=== PATIENT | female | born 1965 | race Hispanic/Latino ===

== ENCOUNTER 2017-08-15 14:39 | Emergency (ER) | payer OTHER ==
[~2017-08-15] VITALS: Ht 152.4 cm; Wt 68.0 kg
[~2017-08-15 14:39] MED LIST: B-12 PO; CALCIUM PO; COLACE100 MG PO; D3 PO; ECOTRIN81 MG PO; JANUMET PO; MOTRIN800 MG PO; MULTIVITAMIN PO; NORCO 5-325 TA1 EACH PO; OMEGA 3 1,0001 EACH PO; PRAVASTATIN SOD20 MG PO; VITAMIN C PO; Z.0.CLINDAMYCIN HC30; Z.0.JANUMET 50-1,01; Z.0.PRAVACHOL40 MG; Z.0.PRILOSEC20 MG; [UNRECOGNIZED DRUG - OTHER]
[2017-08-15 22:08] LABS: BASOPHILS % 0.3 % (0.0-1.0); EOSINOPHILS # (AUTO) 0.1 (0.0-0.4); EOSINOPHILS % 1.5 % (0.0-6.0); HEMOGLOBIN 14.5 g/dL (12.0-16.0); LYMPHOCYTES # (AUTO) 2.7 (1.0-3.2); LYMPHOCYTES % 35.4 % (18.0-39.1); MEAN CORPUSCULAR HEMOGLOBIN 28.8 pg (28-32); MEAN CORPUSCULAR HGB CONC 33.7 g/dL (31-35); MEAN CORPUSCULAR VOLUME 85.5 fL (81-99); MONOCYTES # (AUTO) 0.5 (0.2-0.8); MONOCYTES % 6.4 % (4.4-11.3); NEUTROPHILS # (AUTO) 4.2 (2.1-6.9); NEUTROPHILS % 56.1 % (38.7-80.0); PLATELET COUNT 268 x10e3/uL (140-360); RED BLOOD COUNT 5.03 x10e6/uL (3.6-5.1); RED CELL DISTRIBUTION WIDTH 13.2 % (11.7-14.4)
[2017-08-15 22:27] LABS: ALANINE AMINOTRANSFERASE 24 IU/L (0-55); ALBUMIN 4.7 g/dL (3.5-5.0); ALBUMIN/GLOBULIN RATIO 1.5 (0.8-2.0); ALKALINE PHOSPHATASE 35 IU/L (40-150); AMYLASE 110 U/L (25-125); ANION GAP 15.6 mmol/L (8-16); BLOOD UREA NITROGEN 21 mg/dL (7-26); BUN/CREATININE RATIO 24 (6-25); CALCIUM 10.4 mg/dL (8.4-10.2); CARBON DIOXIDE 26 mmol/L (22-29); CHLORIDE 100 mmol/L (98-107); CREATININE, SERUM 0.88 mg/dL (0.57-1.11); EST GLOMERULAR FILTRATION RATE > 60 ML/MIN (60-); GLUCOSE 174 mg/dL (74-118); LIPASE 84 U/L (8-78); POTASSIUM 3.6 mmol/L (3.5-5.1); SODIUM 138 mmol/L (136-145)
[2017-08-15 23:10] LABS: BILIRUBIN,URINE NEGATIVE (NEGATIVE); KETONES,URINE NEGATIVE (NEGATIVE); LEUKOCYTE ESTERASE ,URINE NEGATIVE (NEGATIVE); PROTEIN,URINE DIPSTICK NEGATIVE (NEGATIVE); URINE UROBILINOGEN 0.2 mg/dL (0.2 - 1)
[2017-08-15 23:11] LABS: CLARITY,URINE SL CLOUDY (CLEAR); COLOR,URINE YELLOW (YELLOW); NITRITE,URINE POSITIVE (NEGATIVE)
[2017-08-15 23:22] LABS: BACTERIA,URINE MANY /HPF; EPITHELIAL CELLS,URINE RARE /LPF; RBC,URINE 0-5 /HPF (0-5)
== END 2017-08-15 23:40 | disposition home or self-care (01) ==
LOC: ER 14:39
DX: R10.13 Epigastric pain (principal); R11.2 Nausea with vomiting, unspecified; N30.90 Cystitis, unspecified without hematuria
CPT/HCPCS: 36415; 80053; 81001; 82150; 83690; 85025; 87086; 87186; 99283

== ENCOUNTER 2018-10-22 10:10 | Emergency (ER) | payer OTHER ==
[~2018-10-22] VITALS: Ht 152.4 cm; Wt 64.9 kg
--- OUTSIDE RECORDS SUMMARY | 2018-10-22 10:13 | XMS REPORT ---
Author Author [facility] Address Unknown Phone Unavailable Care Team Providers Care Brim Presser Name Role Phone Unavailable Unavailable Problems This patient has no known problems. Allergies, Adverse Reactions, Alerts This patient has no known allergies or adverse reactions. Medications This patient has no known medications. Results Test Description Test Time Test Comments Text Results Atomic Results Result Comments SCR MAMM BILATERAL NENITA CAD DIGITAL 2018-07-30 10:02:56 - SCR MAMM BILATERAL NENITA CAD DIGITALBILATERAL DIGITAL SCREENING MAMMOGRAM 3D/2D WITH CAD: 07/25/2018CLINICAL: Asymptomatic. Digital breast tomosynthesis was performed in addition to routine CC and MLO views. Current mammographic images were evaluated by either a [employer] M-Vu or a [employer] ImageChecker CAD (computer aided detection system). Comparison is made to exams dated 06/17/2017 mammogram, mammogram, and 06/01/2015 mammogram - [facility]. The tissue of both breasts is heterogeneously dense. This may lower the sensitivity of mammography. No new suspicious mass, architectural distortion, malignant type calcification, or lymph node abnormality detected. Breast architecture is stable compared to prior exams.IMPRESSION: NEGATIVEThere is no mammographic evidence of malignancy. Resume annual screening mammography in one year. Natalie Wills M.D. ar/:07/30/2018 10:02:56 Attending Technologist: Blanca MENENDEZ, [facility] Technologist: Conchita MENENDEZ, [facility]letter sent: BIRADS 1-2 Normal Mammogram BI-RADS: 1 Negative
--- OUTSIDE RECORDS SUMMARY | 2018-10-22 10:13 | XMS REPORT | Clinical Summary ---
Author Author [facility] Address Unknown Phone Unavailable Care Team Providers Care News Clerk Name Role Phone Delvin Marin MD PCP Allergies No Known Allergies Medications End Date Status Medication Sig Dispensed Refills Start Date Active pravastatin (PRAVACHOL) Take 20 mg by 0 20 MG tablet mouth nightly. Active canagliflozin (INVOKANA) Take 300 mg 0 100 mg tablet tablet by mouth daily. Active sAXagliptin-metformin Take by mouth 0 5-1,000 mg tablet, ER 2 (two) times multiphase 24 hr a day. Active gemfibrozil (LOPID) 600 Take 600 mg 0 MG tablet by mouth 2 (two) times a day before meals. Active aspirin (ECOTRIN) 81 MG Take 162 mg 0 enteric coated tablet by mouth as needed for mild pain. Active Problems No known active problems Encounters Care Team Description Date Type Specialty Rafael Reyes MD 05/26/2018 Anesthesia General Surgery Event Mario Marin MD EXCISION, 5 SCALP MASSES AND INTERMEDIATE CLOSURE 05/26/2018 Surgery General Surgery Mario Marin MD 05/26/2018 Hospital General Surgery Encounter Mario Marin MD Preop testing (Primary Dx) 05/23/2018 Pre-Admit Pre-Admission Testing Testing Appointment Todd Franco MD 11/12/2017 Refill Internal Medicine after 10/21/2017 Family History Medical History Relation Name Comments Diabetes Father Hypertension Father Leukemia Mother Relation Name Status Comments Father Mother Social History Date Tobacco Use Types Packs/Day Years Used Former Smoker Cigarettes Smokeless Tobacco: Never Used Comments: pack per month Alcohol Use Drinks/Week oz/Week Comments Yes social Sex Assigned at Date Recorded Not on file Industry Job Start Date Occupation Not on file Not on file Not on file Travel End Travel History Travel Start No recent travel history available. Last Filed Vital Signs Time Taken Vital Sign Reading 05/26/2018 10:15 AM CDT Blood Pressure 121/76 05/26/2018 10:15 AM CDT Pulse 74 05/26/2018 7:31 AM CDT Temperature 36.6 C (97.8 F) 05/26/2018 10:15 AM CDT Respiratory Rate 16 05/26/2018 10:15 AM CDT Oxygen Saturation 99% - Inhaled Oxygen - Concentration 05/26/2018 7:12 AM CDT Weight 67.3 kg (148 lb 4.8 oz) 05/26/2018 7:12 AM CDT Height 152.4 cm (5') 05/26/2018 7:12 AM CDT Body Mass Index 28.96 Plan of Treatment Health Maintenance Due Date Last Done Comments CERVICAL CANCER SCREENING 1987 BREAST CANCER SCREENING 2016 COLON CANCER SCREENING 2016 SHINGLES VACCINES (#1) 2016 INFLUENZA VACCINE 03/05/2018 Procedures Comments Procedure Name Priority Date/Time Associated Diagnosis SURGICAL PATHOLOGY Routine 05/26/2018 REQUEST 9:22 AM CDT EXCISION, MASS 05/26/2018 SCALP MASSES 8:45 AM CDT R22.9 POC GLUCOSE Routine 05/26/2018 7:27 AM CDT ECG 12-LEAD Routine 05/23/2018 Preop testing 3:45 PM CDT ESTIMATED GFR Routine 05/23/2018 3:17 PM CDT BASIC METABOLIC PANEL Routine 05/23/2018 Preop testing 3:17 PM CDT HC COMPLETE BLD COUNT Routine 05/23/2018 Preop testing W/AUTO DIFF 3:17 PM CDT after 10/21/2017 Results * Surgical pathology request (05/26/2018 9:22 AM CDT) [facility] DEPARTMENT OF PATHOLOGY AND GENOMIC MEDICINE Surgical pathology report See link below for PDF Lab [facility] DEPARTMENT OF Report PATHOLOGY AND GENOMIC MEDICINE Result status This is Final Report for [facility] DEPARTMENT OF [id number] PATHOLOGY AND GENOMIC MEDICINE Performing Organization Address [facility] Phone Number [address] [place] [address] PATHOLOGY AND GENOMIC MEDICINE * POC glucose (05/26/2018 7:27 AM CDT) POC glucose 136 (H) 65 - 99 mg/dL [facility] DEPARTMENT OF Comment: PATHOLOGY AND Meter ID: [id number] GENOMIC MEDICINE Rvda Master Certified Rv Technician: León Patel Performing Organization Address [facility] Phone Number [address] [place] [phone] PATHOLOGY AND GENOMIC MEDICINE * ECG 12 lead (05/23/2018 3:45 PM CDT) Ventricular rate 75 [facility] Atrial rate 75 [facility] [place] interval 144 [facility] QRSD interval 82 [facility] QT interval 416 [facility] QTC interval 464 [facility] P axis 1 17 [facility] QRS axis 1 -71 [facility] T wave axis 41 [facility] EKG impression Normal sinus rhythm-Left axis [facility] MUSE deviation-Low voltage QRS-Possible Anterolateral infarct , age undetermined-Abnormal ECG-No previous ECGs available- Performing Organization Address [facility] Phone Number [facility] [address] [place] [address] * Estimated GFR (05/23/2018 3:17 PM CDT) Estimated GFR >=90 mL/min/1.73 m2 [facility] DEPARTMENT OF Comment: PATHOLOGY AND CatergoryUnitsInte GENOMIC MEDICINE rpretation G1 >=90 Normal or high G2 60-89Mildly decreased W3y25-13 Mildly to moderately decreased B6l56-62 Moderately to severely decreased G4 15-29Severely decreased G5 <15Kidney failure The eGFR was calculated using the Chronic Kidney Disease Epidemiology Collaboration (CKD-EPI) equation. Interpretation is based on recommendations of the National Kidney Foundation-Kidney Disease Outcomes Quality Initiative (NKF-KDOQI) published in 2014. Specimen Plasma specimen Performing Organization Address [facility] Phone Number [address] [place] [address] PATHOLOGY AND GENOMIC MEDICINE * CBC with platelet and differential (05/23/2018 3:17 PM CDT) WBC 6.86 4.50 - 11.00 k/uL [facility] DEPARTMENT OF PATHOLOGY AND GENOMIC MEDICINE RBC 4.80 4.20 - 5.50 m/uL [facility] DEPARTMENT OF PATHOLOGY AND GENOMIC MEDICINE HGB 13.6 12.0 - 16.0 g/dL [facility] DEPARTMENT OF PATHOLOGY AND GENOMIC MEDICINE HCT 41.7 37.0 - 47.0 % [facility] DEPARTMENT OF PATHOLOGY AND GENOMIC MEDICINE MCV 86.9 82.0 - 100.0 fL [facility] DEPARTMENT OF PATHOLOGY AND GENOMIC MEDICINE MCH 28.3 27.0 - 34.0 pg [facility] DEPARTMENT OF PATHOLOGY AND GENOMIC MEDICINE MCHC 32.6 31.0 - 37.0 g/dL [facility] DEPARTMENT OF PATHOLOGY AND GENOMIC MEDICINE RDW - SD 41.9 37.0 - 55.0 fL [facility] DEPARTMENT OF PATHOLOGY AND GENOMIC MEDICINE MPV 11.1 8.8 - 13.2 fL [facility] DEPARTMENT OF PATHOLOGY AND GENOMIC MEDICINE Platelet count 261 150 - 400 k/uL [facility] DEPARTMENT OF PATHOLOGY AND GENOMIC MEDICINE Nucleated RBC 0.00 /100 WBC [facility] DEPARTMENT OF PATHOLOGY AND GENOMIC MEDICINE Neutrophils 53.1 39.0 - 69.0 % [facility] DEPARTMENT OF PATHOLOGY AND GENOMIC MEDICINE Lymphocytes 36.6 25.0 - 45.0 % [facility] DEPARTMENT OF PATHOLOGY AND GENOMIC MEDICINE Monocytes 8.0 0.0 - 10.0 % [facility] DEPARTMENT OF PATHOLOGY AND GENOMIC MEDICINE Eosinophils 1.3 0.0 - 5.0 % [facility] DEPARTMENT OF PATHOLOGY AND GENOMIC MEDICINE Basophils 0.6 0.0 - 1.0 % [facility] DEPARTMENT OF PATHOLOGY AND GENOMIC MEDICINE Specimen Blood Performing Organization Address City/State/Zipcode Phone Number [facility] [address] [place] [address] PATHOLOGY AND GENOMIC MEDICINE * Basic metabolic panel (05/23/2018 3:17 PM CDT) Sodium 140 135 - 148 mEq/L [facility] DEPARTMENT OF PATHOLOGY AND GENOMIC MEDICINE Potassium 4.4 3.5 - 5.0 mEq/L [facility] DEPARTMENT OF PATHOLOGY AND GENOMIC MEDICINE Chloride 100 98 - 112 mEq/L [facility] DEPARTMENT OF PATHOLOGY AND GENOMIC MEDICINE CO2 27 24 - 31 mEq/L [facility] DEPARTMENT OF PATHOLOGY AND GENOMIC MEDICINE Anion gap 13@ANIO 7 - 15 mEq/L [facility] DEPARTMENT OF PATHOLOGY AND GENOMIC MEDICINE BUN 16 6 - 20 mg/dL [facility] DEPARTMENT OF PATHOLOGY AND GENOMIC MEDICINE Creatinine 0.70 0.50 - 0.90 mg/dL [facility] DEPARTMENT OF PATHOLOGY AND GENOMIC MEDICINE Glucose 123 (H) 65 - 99 mg/dL [facility] DEPARTMENT OF PATHOLOGY AND GENOMIC MEDICINE Calcium 10.2 8.3 - 10.2 mg/dL [facility] DEPARTMENT OF PATHOLOGY AND GENOMIC MEDICINE Specimen Plasma specimen Performing Organization Address City/State/Zipcode Phone Number [facility] [id number] [place] [address] [place] [address] PATHOLOGY AND GENOMIC MEDICINE after 10/21/2017 Insurance Payer Benefit Subscriber ID Type Phone Address Plan / Group [facility] xxxxxxxxx HMO/PPO THCARE CHOICE/CHO ICE + Advance Directives Patient has advance care planning documents on file. For more information, vickey hernandez contact: Sen Bender [phone] [facility] [place] [address]
[2018-10-22] MEDS ORDERED: MECLIZINE HCL 12.5 MG TAB PO STA (10:35)
[2018-10-22] MEDS ORDERED: MECLIZINE HCL12.5 MG PO (11:34)
[2018-10-22 11:54] VITALS: BP 117/83
== END 2018-10-22 12:10 | disposition home or self-care (01) ==
LOC: ER 10:10
DX: R42 Dizziness and giddiness (principal); H81.11 Benign paroxysmal vertigo, right ear
CPT/HCPCS: 99283; J8597

== ENCOUNTER 2023-10-09 10:53 | Emergency (ER) | payer OTHER ==
[~2023-10-09] VITALS: Ht 152.4 cm; Wt 69.9 kg
[~2023-10-09 10:53] MED LIST changes: +MECLIZINE HCL12.5 MG PO
[2023-10-09] MEDS: SODIUM CHLORIDE 0.9% 1000ML 1,000 ML IV STA (12:35)
[2023-10-09] MEDS: KETOROLAC TROMETHAMINE 30 MG/ML VIAL IV STA (12:38)
[2023-10-09 13:10] LABS: BASOPHILS % 0.4 % (0.0-1.0); EOSINOPHILS # (AUTO) 0.1 (0.0-0.4); EOSINOPHILS % 1.3 % (0.0-6.0); HEMATOCRIT 41.9 % (34.2-44.1); HEMOGLOBIN 13.8 g/dL (12.0-16.0); LYMPHOCYTES # (AUTO) 2.7 (1.0-3.2); LYMPHOCYTES % 39.6 % (18.0-39.1); MEAN CORPUSCULAR HEMOGLOBIN 28.3 pg (28-32); MEAN CORPUSCULAR HGB CONC 32.9 g/dL (31-35); MEAN CORPUSCULAR VOLUME 85.9 fL (81-99); MONOCYTES # (AUTO) 0.5 (0.2-0.8); MONOCYTES % 7.3 % (4.4-11.3); NEUTROPHILS # (AUTO) 3.4 (2.1-6.9); PLATELET COUNT 264 x10e3/uL (140-360); RED BLOOD COUNT 4.88 x10e6/uL (3.6-5.1); WHITE BLOOD COUNT 6.72 x10e3/uL (4.8-10.8)
[2023-10-09 13:33] LABS: ALBUMIN 4.4 g/dL (3.5-5.0); ALBUMIN/GLOBULIN RATIO 1.5 (0.8-2.0); ANION GAP 14.4 mmol/L (8-16); BILIRUBIN,TOTAL 0.4 mg/dL (0.2-1.2); CALCIUM 9.6 mg/dL (8.4-10.2); CREATININE, SERUM 0.76 mg/dL (0.57-1.11); MAGNESIUM 1.9 MG/DL (1.3-2.1); TOTAL PROTEIN 7.3 g/dL (6.5-8.1)
[2023-10-09 13:34] LABS: POTASSIUM 3.4 mmol/L (3.5-5.1)
[2023-10-09 13:37] VITALS: O2SAT 99
[2023-10-09 13:42] LABS: TROPONIN I 0.005 ng/mL (0-0.300)
[2023-10-09] MEDS ORDERED: METHOCARBAMOL500 MG PO (14:00)
== END 2023-10-09 14:18 | disposition home or self-care (01) ==
LOC: ER 11:23
DX: M79.602 Pain in left arm (principal); R07.89 Other chest pain; M48.02 Spinal stenosis, cervical region; E11.65 Type 2 diabetes mellitus with hyperglycemia; E78.5 Hyperlipidemia, unspecified; R94.31 Abnormal electrocardiogram [ECG] [EKG]
CPT/HCPCS: 36415; 71045; 72125; 80053; 83735; 84484; 85025; 99284; J1885; J7030